=== PATIENT | female | born 1980 | race Caucasian/White ===

== ENCOUNTER 2019-04-06 12:03 | Emergency (ER) | payer MEDICAID ==
[~2019-04-06] VITALS: Ht 172.7 cm; Wt 59.1 kg
[2019-04-06 12:09] VITALS: Ht 172.7 cm; Wt 59.1 kg
[2019-04-06] MEDS ORDERED: LEVOXYL100 MCG PO (12:12)
[2019-04-06] MEDS ORDERED: OMEPRAZOLE40 MG PO (12:13)
[2019-04-06] MEDS ORDERED: KLONOPIN1 MG PO (12:13)
[2019-04-06] MEDS ORDERED: EFFEXOR100 MG PO (12:13)
[2019-04-06 13:04] VITALS: BP 132/80
== END 2019-04-06 13:05 | disposition home or self-care (01) ==
LOC: D.ER 12:03
DX: S63.501A Unspecified sprain of right wrist, initial encounter (principal); W18.31XA Fall on same level due to stepping on an object, initial encounter; Y93.89 Activity, other specified; Y92.019 Unspecified place in single-family (private) house as the place of occurrence of the external cause; S50.11XA Contusion of right forearm, initial encounter